=== PATIENT | male | born 1995 | race Caucasian/White ===

== ENCOUNTER 2021-04-07 18:42 | Emergency (ER) | payer MEDICAID, SELFPAY ==
[2021-04-07 18:45] VITALS: BP 134/97; PULSE 107; RESP 18; TEMP 36.6; O2SAT 96; BMI 36.9
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
[2021-04-07 18:55] VITALS: BP 123/73; PULSE 63; RESP 18; O2SAT 98
[2021-04-07] MEDS: ondansetron 2 mg/ML SDV 2 mL 4 MG IM (18:55)
== END 2021-04-07 19:18 | disposition home or self-care (01) ==
LOC: ER 11-28 14:08
PROVIDERS: Emergency Provider Emergency Medicine; Family Provider Internal Medicine; PCP Internal Medicine
DX: F10.920 Alcohol use, unspecified with intoxication, uncomplicated (principal); Z65.3 Problems related to other legal circumstances
CPT/HCPCS: 96372; 99283; J2405

== ENCOUNTER 2023-01-23 19:07 | Emergency (ER) | payer MEDICAID, SELFPAY ==
[2023-01-23 19:09] VITALS: BP 115/73; PULSE 98; RESP 16; TEMP 36.7; O2SAT 100; BMI 32.5
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
--- NOTE | 2023-01-23 19:13 | XRR_ITS ---
PROCEDURE INFORMATION: Exam: XR Left Ankle Exam date and time: 01/23/2023 7:21 PM Age: 27 years old Clinical indication: Pain; Ankle; Left; Additional info: Trauma TECHNIQUE: Imaging protocol: Radiologic exam of the left ankle. Views: 3 or more views. COMPARISON: CR (LOW EXM, ) 01/23/2023 7:20 PM FINDINGS: Bones/joints: Normal. Soft tissues: Soft tissue swelling over the medial and lateral malleolus. XR/XR ankle LT min 3V* [id number] IMPRESSION: Soft tissue swelling over the medial and lateral malleolus.
--- NOTE | 2023-01-23 19:20 | ED_ITS ---
HPI - Extremity Problem General: Chief complaint: Extremity Injury, Lower Stated complaint: Left ankel injury Time Seen by Provider: 01/23/23 19:13 Source: patient Mode of arrival: ambulatory Limitations: no limitations History of Present Illness: 27-year-old male states he had twisted his ankle yesterday evening he states he had pain in his left lateral ankle since then. States he has had a hard time putting any weight on that ankle he does have bruising rates the pain a 6 out of 10 is much worse with ambulation improved with rest denies any knee or other injuries. Associated symptoms: Deny chest pain, fever(s) or rash Review of Systems Const: Denies: fever(s) or chills Eyes: Denies: eye discomfort ENMT: Denies: throat pain or dental pain Card: Denies: chest pain Resp: Denies: dyspnea GI: Denies: abdominal pain, nausea or vomiting Musc: Reports: extremity pain; Denies: neck pain or back pain Skin/Breast: Denies: rash Physical Exam Const: COMMON NORMALS: no acute distress, patient oriented x3 and healthy appearing HENMT: COMMON NORMALS: normocephalic and atraumatic HEAD & SCALP: norm ocephalic and atraumatic Eye: COMMON NORMALS: conjunctivae normal CONJUNCTIVA: Yes conjunctivae normal Neck/C-Spine: COMMON NORMALS: full ROM and supple Chest: COMMONS NORMALS: normal inspection of the chest Resp: COMMON NORMALS: normal respiratory effort Cardio: COMMON NORMALS: regular rate, regular rhythm and No murmurs present (Cardio) RATE: regular rate RHYTHM: regular rhythm GI: INSPECTION: Yes normal to inspection Extremity: NARRATIVE EXTREMITY EXAM: Tenderness to left lateral ankle with contusion Neuro: COMMON NORMALS: patient oriented x3, moves all extremities and no focal motor deficits Psych: COMMON NORMALS: mental status grossly normal, Normal thought process present and cooperative THOUGHT PROCESS: Normal thought process present Skin: COMMON NORMALS: no rashes or lesions noted and no wounds GENERAL SKIN EXAM: no rashes or lesions noted Course Vital Signs: Vital signs: Vital Signs Temperature 98.1 F 01/23/23 19:09 Pulse Rate 98 01/23/23 19:09 Respiratory Rate 16 01/23/23 19:09 Blood Pressure 115/73 01/23/23 19:09 Pulse Oximetry 100 01/23/23 19:09 Oxygen Delivery Me thod Room Air 07/04/23 19:09 MDM - Extremity (Nontraumatic) Medical Decision Making Patient presents here with an ankle sprain x-ray shows no signs of fracture we will immobilize he is to use crutches we will get him follow-up with orthopedics he does have quite a bit of swelling here he is stable for discharge. Lab Data Radiology Impressions Ankle X-Ray 01/23/23 19:13 IMPRESSION: Soft tissue swelling over the medial and lateral malleolus. Foot X-Ray 01/23/23 19:13 IMPRESSION: No acute findings. Discharge Plan Discharge Patient Disposition: Home Clinical Impression: Left ankle sprain Condition: Stable Prescriptions: New Naprosyn 500 mg tablet 500 mg PO BID PRN (Reason: pain) Qty: 20 0RF Discharge Orders: Discharge ED (Routine); Ordered 01/23/23 Ordered By: Kirk Zuniga Referrals: Scott Jessica DPM [Physician] - 1-3 days Clarke Morgan DO [Primary Care Provider] - Discharge Diet: Advance as tolerated Discharge Activity: Increase activity as tolerated and Use walker/crutches as instructed Patient Instructions: Ankle Sprain (ED) Coding Level of Care Code ED Afterschool Babysitter for Salma Neville
[2023-01-23] MEDS: HYDROcodone-acetaminophen 5-325 mg Tablet 1 TAB PO (19:27)
[2023-01-23 20:09] VITALS: BP 115/73; PULSE 98; RESP 16; TEMP 36.7; O2SAT 100
--- NOTE | 2023-01-24 08:06 | DCPLANNER ---
Addendum entered by Flaca Graves 02/15/23 06:48: Patient had a follow up appointment scheduled with ortho - patient did attend appointment Addendum entered by Flaca Graves 01/24/23 10:43: Patient has a follow up appointment scheduled for Thursday, January 26, [address]23 at 2:[address] Carvajal at podiatry. Original Note: weatherization operations manager had message to schedule a follow up appointment for patient with podiatry. weatherization operations manager sent patients information to the front office staff at podiatry. Patients information will be printed and reviewed. Clinic will call patient with appointment information.
== END 2023-01-23 20:11 | disposition home or self-care (01) ==
PROVIDERS: Emergency Provider Emergency Medicine; PCP Internal Medicine
DX: S93.402A Sprain of unspecified ligament of left ankle, initial encounter (principal); X50.1XXA Overexertion from prolonged static or awkward postures, initial encounter
CPT/HCPCS: 29515; 73610; 73630; 99283; E0114

== ENCOUNTER → 2023-01-26 10:46 | Outpatient (BNVA) | payer MEDICAID, SELFPAY | PROVIDERS: PCP Internal Medicine; Visit Provider Podiatrist Foot & Ankle Surgery | DX: S92.152A Displaced avulsion fracture (chip fracture) of left talus, initial encounter for closed fracture (principal); S82.832A Other fracture of upper and lower end of left fibula, initial encounter for closed fracture; X58.XXXA Exposure to other specified factors, initial encounter; S93.492A Sprain of other ligament of left ankle, initial encounter | CPT/HCPCS: 99204 ==

== ENCOUNTER 2023-01-29 09:00 | Outpatient (CLI) | payer MEDICAID, SELFPAY | END 2023-01-29 09:01 | disposition home or self-care (01) | LOC: SPT 09:01 | PROVIDERS: PCP Internal Medicine; Visit Provider Podiatrist Foot & Ankle Surgery | DX: Z46.89 Encounter for fitting and adjustment of other specified devices (principal); S92.153D Displaced avulsion fracture (chip fracture) of unspecified talus, subsequent encounter for fracture with routine healing; X58.XXXD Exposure to other specified factors, subsequent encounter | CPT/HCPCS: 97760; L4361 ==

== ENCOUNTER → 2023-02-08 14:18 | Outpatient (BNVA) | payer MEDICAID, SELFPAY | PROVIDERS: PCP Internal Medicine; Visit Provider Podiatrist Foot & Ankle Surgery | DX: S93.492A Sprain of other ligament of left ankle, initial encounter (principal); S82.832A Other fracture of upper and lower end of left fibula, initial encounter for closed fracture; W19.XXXA Unspecified fall, initial encounter; S92.15 Avulsion fracture (chip fracture) of talus | CPT/HCPCS: 73610 ==

== ENCOUNTER 2023-02-08 16:37 | Outpatient (CLI) | payer MEDICAID, SELFPAY | END 2023-02-08 16:38 | disposition home or self-care (01) | LOC: SPT 16:37 | PROVIDERS: PCP Internal Medicine; Visit Provider Podiatrist Foot & Ankle Surgery | DX: Z46.89 Encounter for fitting and adjustment of other specified devices (principal); S92.153D Displaced avulsion fracture (chip fracture) of unspecified talus, subsequent encounter for fracture with routine healing; S82.839D Other fracture of upper and lower end of unspecified fibula, subsequent encounter for closed fracture with routine healing; W19.XXXD Unspecified fall, subsequent encounter | CPT/HCPCS: 97760; 99213; L1902 ==

== ENCOUNTER 2023-02-26 15:30 | Outpatient (CLI) | payer MEDICAID, SELFPAY ==
--- NOTE | 2023-02-26 15:50 | XR_ITS ---
WS: [id number] XR ankle LT min 3V* [id number] REASON FOR EXAM: left ankle fracture FINDINGS: There is soft tissue swelling over the lateral malleolus. There are multiple bony fragments overlying the anterior and posterior talofibular fibular ligaments. Some of the fragments appear to be well-corticated indicative of old injury however posteriorly ther e appears to be interval change in the orientation of the small bony fragment which may indicate an a cute avulsion injury. XR/XR ankle LT min 3V* [id number] IMPRESSION: Likely anterior and posterior talofibular ligamentous injuries with acute super imposed on chronic.
== END 2023-02-26 15:31 | disposition home or self-care (01) ==
LOC: RAD 15:33
PROVIDERS: PCP Internal Medicine; Visit Provider Podiatrist Foot & Ankle Surgery
DX: S82.839A Other fracture of upper and lower end of unspecified fibula, initial encounter for closed fracture (principal); S92.15 Avulsion fracture (chip fracture) of talus; X58.XXXA Exposure to other specified factors, initial encounter
CPT/HCPCS: 73610